=== PATIENT | female | born 1990 | race Two or more races ===

== ENCOUNTER 2025-02-23 01:21 | Inpatient (IN) | payer OTHER ==
[~2025-02-23] VITALS: Ht 154.9 cm; Wt 86.2 kg
[2025-02-23] VITALS (7 sets, daily range): BP systolic 96–116; BP diastolic 49–70
[~2025-02-23 01:21] MED LIST: CHLORHEXIDINE GLUCONATE 120 ML BOTTLE TOP ONE; ERYTHROMYCIN BASE OPHT 1GM EACH TUBE OP ONE; LIDOCAINE HCL 1% 10ML VIAL ONE; OXYTOCIN 20 UNITS/1000ML RL PIGGYBAG IV ONE
[2025-02-23] MEDS ORDERED: PRENATAL TABLE1 EAC4 PO (01:26)
[2025-02-23] MEDS ORDERED: AMPICILLIN SODIUM 2,000 MG VIAL IV ONE (01:30)
[2025-02-23] MEDS ORDERED: RINGERS SOLUTION,LACTATED 1,000 ML IV SCH (01:30)
[2025-02-23 02:15] LABS: BASO % 0.3 % (0.1-1.2); EOS # 0.04 (0.04-0.54); EOS % 0.4 % (0.7-7.0); LYMPH # 2.58 (1.18-3.74); LYMPH % 22.8 % (19.3-53.1); MEAN PLATELET VOLUME 10.50 fl (9.4-12.4); MONO # 0.56 (0.24-0.82); MONO % 4.9 % (4.7-12.5); NEUT # 8.10 (1.56-6.13); NEUT % 71.3 % (34.0-71.1); RED CELL DISTRIBUTION WIDTH 13.1 % (11.6-14.4)
[2025-02-23 02:33] LABS: INR < 0.93
[2025-02-23 02:38] LABS: ALT/SGPT 21.0 U/L (12-78); AST/SGOT 17.0 U/L (15-37); BILIRUBIN TOTAL 0.28 mg/dL (0.3-1.2); BUN CREA RATIO 10.0 (7.0-25.0); CREATININE SERUM 0.8 mg/dL (0.55-1.02); GFR 81.16; GLOBULINA 4.1 G/DL (2.4-3.5); GLUCOSE FASTING 94.0 mg/dL (65-100); OSMOLALITY SERUM 277.0 MOSM/KG (275-295)
[2025-02-23] MEDS ORDERED: DOCUSATE SODIUM 100MG CAP PO SCH (05:37)
[2025-02-23] MEDS ORDERED: CHLORHEXIDINE GLUCONATE 120 ML BOTTLE TOP SCH (05:45)
[2025-02-23] MEDS ORDERED: LIDOCAINE HCL 1% 10ML VIAL PERCUT ONE (05:45)
[2025-02-23] MEDS ORDERED: ERYTHROMYCIN BASE OPHT 1GM EACH TUBE OP ONE (05:45)
[2025-02-23] MEDS ORDERED: ACETAMINOPHEN WITH CODEINE 1 UDTAB TABLET PO PRN (05:45)
[2025-02-23] MEDS ORDERED: GENTAMICIN SULFATE 40 MG/ML VIAL IV ONE (05:45)
[2025-02-23] MEDS ORDERED: OXYTOCIN 1,000 ML IV SCH (05:45)
[2025-02-24 00:19] VITALS: BP 100/60
[2025-02-24 08:51] VITALS: BP 105/69
[2025-02-24 16:20] VITALS: BP 96/64
[2025-02-24 23:49] VITALS: BP 105/70
[2025-02-25 09:45] VITALS: BP 100/67
== END 2025-02-25 11:46 | disposition home or self-care (01) | DRG 768 ==
LOC: LDR 01:21 → OB/GYN 01:21
PROVIDERS: ADMIT Obstetrics & Gynecology; ATTEND Obstetrics & Gynecology
PROC: 10E0XZZ Delivery of Products of Conception, External Approach (ICD-10-PCS; principal; 2025-02-23)
PROC: 06BY0ZC Excision of Hemorrhoidal Plexus, Open Approach (ICD-10-PCS; 2025-02-23)
PROC: 0KQM0ZZ Repair Perineum Muscle, Open Approach (ICD-10-PCS; 2025-02-23)
PROC: 4A1HXCZ Monitoring of Products of Conception, Cardiac Rate, External Approach (ICD-10-PCS; 2025-02-23)
DX: O70.1 Second degree perineal laceration during delivery (principal); O22.43 Hemorrhoids in pregnancy, third trimester; Z37.0 Single live birth; O99.824 Streptococcus B carrier state complicating childbirth; Z3A.38 38 weeks gestation of pregnancy